=== PATIENT | female | born 2000 | race Two or more races ===

== ENCOUNTER 2023-10-06 19:21 | Emergency (ER) | payer MEDICAID, OTHER ==
[~2023-10-06] VITALS: Ht 165.1 cm; Wt 65.8 kg
[2023-10-06 20:42] VITALS: BP 113/76; TEMP 98; O2SAT 98
[2023-10-06] MEDS ORDERED: POLY17PO4 PO (21:04)
[2023-10-06] MEDS ORDERED: GLYC-30 RC (21:04)
== END 2023-10-06 21:18 | disposition home or self-care (01) ==
LOC: ER 19:25
DX: K59.00 Constipation, unspecified (principal); Z88.1 Allergy status to other antibiotic agents

== ENCOUNTER 2024-07-08 19:20 | Emergency (ER) | payer OTHER ==
[~2024-07-08] VITALS: Ht 167.6 cm; Wt 68.0 kg
[~2024-07-08 19:20] MED LIST: GLYC-30 RC; POLY17PO4 PO
[2024-07-08] MEDS ORDERED: LIDOCAINE 5% (PATCH) 1 EA PATCH TP ONE (20:10)
[2024-07-08] MEDS ORDERED: KETOROLAC TROMETHAMINE 15 MG/ML VIAL ONE (20:10)
[2024-07-08] MEDS ORDERED: ACETAMINOPHEN ES 500 MG TABLET ONE (20:11)
[2024-07-08] MEDS ORDERED: CYCLOBENZAPRINE 10 MG TABLET ONE (20:11)
[2024-07-08] MEDS: LIDOCAINE 5% (PATCH) 1 EA PATCH TP ONE (20:31)
[2024-07-08] MEDS: CYCLOBENZAPRINE 10 MG TABLET PO ONE (20:31)
[2024-07-08] MEDS: KETOROLAC TROMETHAMINE 15 MG/ML VIAL IM ONE (20:31)
[2024-07-08] MEDS: ACETAMINOPHEN ES 500 MG TABLET PO ONE (20:31)
[2024-07-08] MEDS ORDERED: oxyCODONE/APAP (5/325 MG) 1 UDTAB TABLET ONE (21:38)
[2024-07-08] MEDS: oxyCODONE/APAP (5/325 MG) 1 UDTAB TABLET PO ONE (21:45)
[2024-07-08] MEDS ORDERED: dexaMETHasone SOD PHOSPHATE 1 ML ONE (22:01)
[2024-07-08] MEDS: dexaMETHasone SOD PHOSPHATE 10 MG/ML VIAL IM ONE (22:19)
[2024-07-08] MEDS ORDERED: HYDR-4303 PO (22:25)
[2024-07-08] MEDS ORDERED: ACET-2605 PO (22:25)
[2024-07-08] MEDS ORDERED: IBUP-1955 PO (22:25)
[2024-07-08] MEDS ORDERED: CYCL5TAB PO (22:25)
[2024-07-08 22:38] VITALS: BP 111/71; TEMP 98; O2SAT 100
== END 2024-07-08 22:43 | disposition home or self-care (01) ==
LOC: ER 19:21
DX: M54.59 Other low back pain (principal); Z87.39 Personal history of other diseases of the musculoskeletal system and connective tissue; Z88.8 Allergy status to other drugs, medicaments and biological substances; Z60.2 Problems related to living alone
CPT/HCPCS: 99284; 96372 ×2; J1100; J1885

== ENCOUNTER 2024-08-17 05:25 | Emergency (ER) | payer OTHER ==
[~2024-08-17] VITALS: Ht 167.6 cm; Wt 67.1 kg
[~2024-08-17 05:25] MED LIST changes: +ACET-2605 PO; +CYCL5TAB PO; +HYDR-4303 PO; +IBUP-1955 PO
[2024-08-17] MEDS ORDERED: LIDOCAINE 5% (PATCH) 1 EA PATCH TP ONE (06:43)
[2024-08-17] MEDS ORDERED: dexaMETHasone SOD PHOSPHATE 1 ML ONE (06:43)
[2024-08-17] MEDS ORDERED: KETOROLAC TROMETHAMINE 15 MG/ML VIAL ONE (06:43)
[2024-08-17] MEDS ORDERED: HYDROCODONE/APAP 5/325MG TABLET ONE (06:44)
[2024-08-17] MEDS: LIDOCAINE 5% (PATCH) 1 EA PATCH TP STA (06:51)
[2024-08-17] MEDS: HYDROCODONE/APAP 5/325MG TABLET PO ONE (06:52)
[2024-08-17] MEDS: dexaMETHasone SOD PHOSPHATE 10 MG/ML VIAL IM ONE (06:56)
[2024-08-17] MEDS: KETOROLAC TROMETHAMINE 15 MG/ML VIAL IM ONE (06:56)
[2024-08-17] MEDS ORDERED: IBUP-1955 PO (07:21)
[2024-08-17] MEDS ORDERED: HYDR-4303 PO (07:21)
[2024-08-17] MEDS ORDERED: METH4TAB17 PO (07:21)
[2024-08-17] MEDS ORDERED: LIDO30AD10 TP (07:21)
[2024-08-17] MEDS ORDERED: LORAZEPAM INJ 2 MG/ML VIAL ONE (07:33)
[2024-08-17] MEDS: LORAZEPAM INJ 2 MG/ML VIAL IM ONE (07:57)
[2024-08-17 08:41] VITALS: BP 131/69; TEMP 98; O2SAT 98
== END 2024-08-17 08:42 | disposition home or self-care (01) ==
LOC: ER 05:32
DX: M54.6 Pain in thoracic spine (principal); Z60.2 Problems related to living alone; Z88.0 Allergy status to penicillin
CPT/HCPCS: 99284; 96372 ×3; J2060; J1100; J1885

== ENCOUNTER 2024-10-26 15:17 | Emergency (ER) | payer OTHER ==
[~2024-10-26] VITALS: Ht 167.6 cm; Wt 65.8 kg
[~2024-10-26 15:17] MED LIST changes: +LIDO30AD10 TP; +METH4TAB17 PO
[2024-10-26 15:39] VITALS: BP 109/71; TEMP 97.9; O2SAT 98
[2024-10-26] MEDS ORDERED: EMTR1TAB12 PO (16:02)
[2024-10-26] MEDS ORDERED: RALT400T PO (16:02)
[2024-10-26 16:33] LABS: BASOPHILS % (AUTO) 0.7 % (0.0-2.0); EOSINOPHILS % (AUTO) 0.9 % (0.0-6.0); HEMATOCRIT 38 % (33-45); HEMOGLOBIN 13.5 g/dL (11.5-14.8); LYMPHOCYTES # (AUTO) 2.5 K/uL (0.8-4.8); LYMPHOCYTES % (AUTO) 59.4 % (20.0-44.0); MEAN CORPUSCULAR HEMOGLOBIN 36 PG (26.0-33.0); MEAN CORPUSCULAR HGB CONC 35 g/dl (31.0-36.0); MEAN CORPUSCULAR VOLUME 101 fL (82-100); MONOCYTES # (AUTO) 0.2 K/uL (0.1-1.30); MONOCYTES % (AUTO) 5.4 % (2.0-12.0); NEUTROPHILS # (AUTO) 1.4 K/uL (1.8-8.9); NEUTROPHILS % (AUTO) 33.6 % (43.0-81.0); PLATELET COUNT (AUTO) 165 K/uL (150-450); RED BLOOD CELL COUNT(AUTO) 3.76 MIL/uL (4.0-5.2); RED CELL DISTRIBUTION WIDTH 12.5 % (11.5-15.0); WHITE BLOOD COUNT (AUTO) 4.3 K/uL (4.3-11.0)
[2024-10-26 16:39] LABS: CALCIUM, SERUM 9.4 mg/dL (8.5-10.1); CREATININE 0.7 mg/dL (0.6-1.3); POTASSIUM 3.8 mmol/L (3.5-5.1)
[2024-10-26 16:45] LABS: ALBUMIN 4.4 g/dL (3.4-5.0); BILIRUBIN,DIRECT 0.1 mg/dL (0.0-0.2); BILIRUBIN,TOTAL 0.3 mg/dL (0.2-1.0); TOTAL PROTEIN, SERUM 8.6 g/dL (6.4-8.2)
[2024-10-26 17:42] LABS: PREGNANCY TEST URINE QUAL NEGATIVE (NEGATIVE)
[2024-10-27 22:44] LABS: HIV-1 p24 ANTIGEN NON REACTIVE (NONREACTIVE); HIV-1/2 ANTIBODY NON REACTIVE (NONREACTIVE)
== END 2024-10-26 17:52 | disposition home or self-care (01) ==
LOC: ER 15:17
DX: Z20.6 Contact with and (suspected) exposure to human immunodeficiency virus [HIV] (principal); Z79.624 Long term (current) use of inhibitors of nucleotide synthesis; Z88.0 Allergy status to penicillin; Z60.2 Problems related to living alone
CPT/HCPCS: 36415; 80048-TC; 80076-TC; 84703-TC; 85025-TC; 87806